=== PATIENT | female | born 1960 | race Caucasian/White ===

== ENCOUNTER 2021-07-25 19:19 | Inpatient (IN) | payer OTHER ==
[~2021-07-25] VITALS: Ht 165.1 cm; Wt 87.2 kg
--- NOTE | 2021-07-25 19:30 | NUR ---
PATIENT C/O CP RADIATING TO THROAT, JAW THAT STARTED 2 DAYS AGO. PATIENT AND PATIENT'S DAUGHTER UNABLE TO RECALL HOME MEDICATION AND COMPLETE HX.
--- NOTE | 2021-07-25 19:41 | NUR ---
Dr. Villatoro on bedside for MSE.
[2021-07-25] MEDS ORDERED: NITROGLYCERIN OINT 1 GM PACKET TP ONE ×2 (19:45→20:06)
[2021-07-25] MEDS ORDERED: ASPIRIN 81 MG TAB.CHEW PO ONE ×2 (19:45→21:00)
[2021-07-25] MEDS ORDERED: IBUPROFEN 600 MG TABLET PO ONE (19:45)
--- NOTE | 2021-07-25 20:00 | NUR ---
PATIENT AND DAUGHTER UNABLE TO RECALL HOME MEDICATION AT THIS TIME. PATIENT'S DAUGHTER YONY WILL BRING LIST IN THE AM.
[2021-07-25 20:04] LABS: HEMATOCRIT 40.4 % (31.2-41.9); MEAN CORPUSCULAR HEMOGLOBIN 30.4 uug (24.7-32.8); MEAN CORPUSCULAR VOLUME 88.5 fL (75.5-95.3); PLATELET COUNT (AUTO) 279 K/uL (179-408)
[2021-07-25] MEDS ORDERED: ASPIRIN 81 MG TAB.CHEW ONE ×2 (20:05→21:04)
[2021-07-25] MEDS ORDERED: IBUPROFEN 600 MG TABLET ONE (20:06)
[2021-07-25 20:11] LABS: CREATININE 0.7 mg/dL (0.6-1.3); POTASSIUM 4.4 mmol/L (3.5-5.1)
[2021-07-25 20:23] LABS: BILIRUBIN,DIRECT 0.1 mg/dL (0.0-0.2); BILIRUBIN,TOTAL 0.3 mg/dL (0.2-1.0); TOTAL PROTEIN, SERUM 7.6 g/dL (6.4-8.2)
--- NOTE | 2021-07-25 20:41 | NUR ---
Telephone call to Cardiology spoke to Trell Page.
[2021-07-25] MEDS ORDERED: METOPROLOL TARTRATE 5 MG/5 ML VIAL IVP ONE ×2 (20:45→20:53)
[2021-07-25] MEDS ORDERED: NITROGLYCERIN 0.4 MG/TAB BOTTLE SL ONE ×2 (20:45→20:53)
--- NOTE | 2021-07-25 20:49 | NUR ---
Dr Villatoro community organization worker with Dr Page.
[2021-07-25] MEDS ORDERED: ENOXAPARIN SODIUM 30 MG/0.3 ML DISP.SYRIN SUBCUT ONE (21:00)
[2021-07-25] MEDS ORDERED: ENOXAPARIN SODIUM 30 MG/0.3 ML DISP.SYRIN ONE (21:04)
--- NOTE | 2021-07-25 21:18 | NUR ---
Patient still complaining of CP. 2nd dose of nitroquick 0.4mg SL given.
--- NOTE | 2021-07-25 21:40 | NUR ---
Telephoce call to [facility], Spoke to Jeremy will page Dr. Graves.
[2021-07-25] MEDS ORDERED: ONDANSETRON 4 MG/2 ML VIAL IV ONE (21:45)
[2021-07-25] MEDS ORDERED: HYDROMORPHONE 1 MG/1 ML DISP.SYRIN IV ONE (21:45)
--- NOTE | 2021-07-25 21:45 | NUR ---
Dr Villatoro on panel call with Dr Graves. Pt for admission [facility] for CP.
[2021-07-25] MEDS ORDERED: ACETAMINOPHEN 325 MG TABLET PO PRN (22:15)
[2021-07-25] MEDS ORDERED: MAGNESIUM HYDROXIDE 30 ML LIQUID UDC PO PRN (22:15)
[2021-07-25] MEDS ORDERED: ONDANSETRON 4 MG/2 ML VIAL IV PRN (22:15)
[2021-07-25] MEDS ORDERED: HYDROMORPHONE 1 MG/1 ML DISP.SYRIN IV PRN (22:15)
[2021-07-25] MEDS: METOPROLOL TARTRATE 50 MG TABLET PO SCH (22:15)
[2021-07-25] MEDS ORDERED: NITROGLYCERIN 0.4 MG/TAB BOTTLE SL PRN (22:15)
[2021-07-25] MEDS ORDERED: ENOXAPARIN SODIUM 60 MG/0.6 ML DISP.SYRIN SQ ONE (22:40)
--- NOTE | 2021-07-25 23:30 | NUR ---
Pt. admitted to [facility], Room [address] Graves. Belongs List completed.
[2021-07-26] VITALS (7 sets, daily range): BP systolic 101–149; BP diastolic 46–92
[2021-07-26] MEDS: ATORVASTATIN 40 MG TABLET PO SCH ×2 (00:36→20:17)
--- NOTE | 2021-07-26 05:22 | NUR ---
Pt admitted to [facility] at 2300H 07/25/21. Pt able to make needs known. Denies chest pain or SOB at this time. Lung sounds clear. SR on tele. Pt able to walk with assistance. No distress noted throughout the night. IV site intact. Will endorse to day shift.
[2021-07-26] MEDS ORDERED: PANTOPRAZOLE SODIUM 40 MG TABLET.DR PO SCH (07:00)
[2021-07-26 07:31] LABS: HEMATOCRIT 39.3 % (31.2-41.9); MEAN CORPUSCULAR HEMOGLOBIN 30.5 uug (24.7-32.8); MEAN CORPUSCULAR VOLUME 88.9 fL (75.5-95.3); PLATELET COUNT (AUTO) 255 K/uL (179-408)
[2021-07-26] MEDS: METOPROLOL TARTRATE 50 MG TABLET PO SCH ×2 (08:36→20:17)
[2021-07-26 08:47] LABS: BILIRUBIN,TOTAL 0.6 mg/dL (0.2-1.0); CREATININE 0.7 mg/dL (0.6-1.3); PHOSPHOROUS 3.9 mg/dL (2.5-4.9); POTASSIUM 3.8 mmol/L (3.5-5.1); TOTAL PROTEIN, SERUM 7.3 g/dL (6.4-8.2)
[2021-07-26] MEDS ORDERED: ASPIRIN EC 81 MG TABLET.DR PO SCH (09:00)
[2021-07-26] MEDS ORDERED: ENOXAPARIN SODIUM 80 MG/0.8 ML DISP.SYRIN SQ SCH ×2 (09:00→21:00)
[2021-07-26] MEDS ORDERED: ENOXAPARIN SODIUM 100 MG/ML DISP.SYRIN SQ SCH (09:00)
[2021-07-26 10:46] LABS: THYROID STIMULATING HORMONE 2.264 mIU/mL (0.358-3.740)
--- NOTE | 2021-07-26 11:29 | NUR ---
A call to [email or web address] Dr. Amaral message left with executive secretary to remind him about the consult He has to to see pt. call back number left.
--- NOTE | 2021-07-26 11:30 | NUR ---
I was call to the room by pt's daughter Ms. Anderson As verbalized by her "Why my mother has not been seen by meter repair shop supervisor I was told last night in the E.R. unit that Television Repairer will come at 0730 to see my mon" I want you to speak to Case-management because my siblings and I want her to be transfer to another unit" Ms. Anderson also apologizing stating "I'm very sorry for what happened this morning I can see you guys are busy I came earlier because they told me the will be here early".
--- NOTE | 2021-07-26 11:33 | NUR ---
Case management Chelsea called and informed of Ms. Anderson request and was given her phone number to speak to her
[2021-07-26] MEDS ORDERED: METO-358 PO (12:21)
[2021-07-26] MEDS ORDERED: OMEP20TA5 PO (12:21)
[2021-07-26] MEDS ORDERED: ESCI10TA PO (12:21)
[2021-07-26] MEDS ORDERED: HYDR25TA4 PO (12:21)
[2021-07-26] MEDS ORDERED: GABA-536 PO ×2 (12:21)
[2021-07-26] MEDS ORDERED: HYDR-4077 PO (12:21)
[2021-07-26] MEDS ORDERED: FENO134C PO (12:21)
[2021-07-26] MEDS ORDERED: vit d2 PO (12:21)
[2021-07-26] MEDS ORDERED: ASPI81TA31 PO (12:21)
[2021-07-26] MEDS ORDERED: ATOR40TA PO (12:21)
[2021-07-26] MEDS ORDERED: SERT50TA PO (12:21)
[2021-07-26] MEDS ORDERED: LOSA100T31 PO (12:21)
[2021-07-26] MEDS ORDERED: DICL50TA9 PO (12:21)
--- NOTE | 2021-07-26 12:25 | NUR ---
Attending physician Jordan Coleman in the unit to examine pt. report given see order hx.
--- NOTE | 2021-07-26 13:15 | NUR ---
A call to case management Chelsea as MS. Anderson pt's daughter want to talk to her.
--- NOTE | 2021-07-26 13:45 | NUR ---
Pt. With c/of headache medicated and A call to crew caller Dr. Amaral message through [employer]. awaiting call back.
--- NOTE | 2021-07-26 14:12 | NUR ---
At this time Ms. Anderson walk to the nursing station with her cell phone in hand stating "MY friend wants to talk to you" On other side a family friend with name Christina stated "It's unreasonable that you guys have done nothing my friend is severely sick with heart attack if you guys don't do anything within 1 hour I'll call [facility] because this is unacceptable" Ms. Berger is visible upset but she was informed that has been called. Addendum: 07/26/21 at 1418 by PIPO BELTRAN RN All this was witness by nursing supervisor fiberglass boat assembly present in the station.
--- NOTE | 2021-07-26 14:18 | NUR ---
classification and treatment director informed and with her in the unit called to his personal number. And at this time I was informed He'll be here within 45 min estimated.
--- NOTE | 2021-07-26 14:35 | NUR ---
Cardiology services, Dr. Amaral in the unit to examine pt. At this time pt's daughter Ms. Anderson at bedside and they had a lengthy discussion of care plan. After this connected to case management Ms. Tran. informed Ms. Tran that both pt. and family agreed on to be transfer to [facility] for possible heqart procedure (cardiac cath) tomorrow 07/27/21 at 1300. orders for NPO PMN. and to hold lovenox night time dose.
[2021-07-26] MEDS ORDERED: hydrALAZINE HCL 50 MG TABLET PO SCH (17:00)
[2021-07-26] MEDS ORDERED: METO50TA16 PO (17:17)
[2021-07-26] MEDS ORDERED: NITR0.4T48 SL (17:17)
[2021-07-26] MEDS ORDERED: ONDA4VIA23 IV (17:17)
--- NOTE | 2021-07-26 17:34 | NUR ---
A call from Ms. Tran case-management and I was informed that pt. will be shredder picker by [facility] at 2030 going to room 310A and admitting physician will be Dr. Lee West. Also instructions to call and report at .
--- NOTE | 2021-07-26 17:39 | NUR ---
A call to [facility] at and at this time I spoke with charge nurse Elaine I was informed that no nurse will take report on this patient now and call for report after 2129.
[2021-07-26] MEDS ORDERED: GABAPENTIN 400 MG CAPSULE PO SCH (18:00)
[2021-07-26] MEDS ORDERED: ATORVASTATIN 40 MG TABLET PO SCH (18:00)
--- NOTE | 2021-07-26 19:30 | NUR ---
rounds made patient in bed aaox4, denies chest pain . on oxygen via nasal cannula at 2 liters/ min rr 25 saturation 99 % .sr on the heart monitor 71.informed patient that she is going to [facility] for transfer . patient verbalized understandings .
--- NOTE | 2021-07-26 20:09 | NUR ---
sbar report given to RN SHERICE ALEMAN in [facility] ,shes going to room 310A.
--- NOTE | 2021-07-26 20:15 | NUR ---
patient daughter at b/s and questions answered patients daughter verbalized understanding for the transfer to [facility] .
--- NOTE | 2021-07-26 20:28 | NUR ---
due medication given patient tolerated with water .patient able to swallow medication with no difficulty .
[2021-07-26] MEDS ORDERED: DOCUSATE SODIUM 250 MG CAPSULE PO SCH (21:00)
[2021-07-26] MEDS ORDERED: DOCUSATE SODIUM 100 MG CAPSULE PO SCH (21:00)
--- NOTE | 2021-07-26 21:00 | NUR ---
ambulance [facility] came to picking machine operator helper patient report given to Jose integration specialist and discharge pocket given ,patient left with daughter she is riding with the ambulance . no belongings noted .
[2021-07-27] MEDS ORDERED: ESCITALOPRAM OXALATE 10 MG TABLET PO SCH (09:00)
[2021-07-27] MEDS ORDERED: LOSARTAN POTASSIUM 50 MG TABLET PO SCH (09:00)
[2021-07-27] MEDS ORDERED: SERTRALINE HCL 50 MG TABLET PO SCH (09:00)
[2021-07-27] MEDS ORDERED: FENOFIBRATE NANOCRYSTALLIZED 145 MG TABLET PO SCH (09:00)
[2021-07-27] MEDS ORDERED: METOPROLOL SUCCINATE XL 50 MG TAB.SR.24H PO SCH (09:00)
[2021-07-27] MEDS ORDERED: HYDROCHLOROTHIAZIDE 25 MG TABLET PO SCH (09:00)
== END 2021-07-26 21:00 | disposition short-term general hospital (02) | DRG 190 ==
LOC: ER 19:20 → TELE-TD3 22:56 → CCU 07-26 07:56
PROVIDERS: ADMIT Nurse Practitioner Acute Care; ATTEND Nurse Practitioner Acute Care
DX: I21.4 Non-ST elevation (NSTEMI) myocardial infarction (principal); E66.01 Morbid (severe) obesity due to excess calories; E78.00 Pure hypercholesterolemia, unspecified; E78.5 Hyperlipidemia, unspecified; I10 Essential (primary) hypertension; I25.10 Atherosclerotic heart disease of native coronary artery without angina pectoris; R60.0 Localized edema; Z88.5 Allergy status to narcotic agent
CPT/HCPCS: 36415; 70030-TC; 71045; 83735; 84100; 84443; 85025; 85730; 93005; 93307; A4663; G0378; J1170; J1650; J2405; J3490